=== PATIENT | female | born 1985 | race Caucasian/White ===

== ENCOUNTER 2017-07-25 17:35 | Emergency (ER) | payer MEDICAID ==
[~2017-07-25] VITALS: Ht 154.9 cm; Wt 61.2 kg
[~2017-07-25 17:35] MED LIST: CIPR500T2 PO; GABA300C3 PO; MELO15TA2 PO; METH500T3 PO; NAPR550 PO; OXYC15TA PO; PHEN-426 PO; Z.0.BCPILL PO
--- NOTE | 2017-07-25 19:02 | PD ---
HPI Chief Complaint Vaginal bleeding after intercourse Date Seen: Jul 25, 2017 Time Seen: 18:28 Travel History International Travel<30 Days: No Contact w/Intl Traveler<30Days: No Known Affected Area: No History of Present Illness HPI Patient is 32-year-old white female at [address] Mendosa care and presents complaining of vaginal bleeding similar to her period After intercourse today. She is not had this problem before. And she had a recent ultrasound that showed everything was normal. She has only minimal cramping noted today. Has not taken anything for that at this time, heart tones are 140s. Weeks Gestation: 18 Para: 1 : 2 History Obstetric History Obstetric History 1 for breech Past Surgical History Narrative Surgical Social History Alcohol Use: No Tobacco Use: No Substance Abuse: No Allergies-Medications (Allergen,Severity, Reaction): Coded Allergies: cefaclor (Unverified Allergy, Intermediate, HIVES, 12/24/16) codeine (Unverified Adverse Reaction, Intermediate, N&V, 12/24/16) Home Meds Discontinued Reported Medications Oxycodone (Oxycodone) 15 Mg Tab, 15 MG PO BID 05/25/11 Gabapentin (Gabapentin) 300 Mg Cap, 300 MG PO BID 05/25/11 Meloxicam (Mobic) 15 Mg Tab, 15 MG PO DAILY 05/25/11 Miscellaneous ( Control Pills) Tab, 1 TAB PO DAILY 10/18/10 Discontinued Scripts Phenazopyridine Hcl (Pyridium) 100 Mg Tab, 100 MG PO TID, #20 Prov:LESLEY LAKE MD 05/25/11 Ciprofloxacin Hcl (Ciprofloxacin Hcl) 500 Mg Tab, 500 MG PO BID, #14 Prov:LESLEY LAKE MD 05/25/11 Methocarbamol (Methocarbamol) 500 Mg Tab, 500 MG PO QID, #28 Prov:Gaurav Callejas MD 10/18/10 Naproxen Sodium (Anaprox Ds) 550 Mg Tab, 550 MG PO BID, #20 Prov:Gaurav Callejas MD 10/18/10 Review of Systems General / Constitutional: No: Fever, Weight Gain, Chills, Other Eyes: No: Diploplia, Blurred Vision, Visual changes, Pain, Photophobia HENT: No: Headaches, Vertigo, Lightheadedness Cardiovascular: No: Irregular Rhythm, Chest Pain or Discomfort, Palpitations, Tachycardia, Syncope, Varicosities, Edema, Cyanosis Respiratory: No: Cough, Short of Breath, Other Gastrointestinal: No: Nausea, Vomiting, Diarrhea Genitourinary: Vaginal Bleeding, No: Decreased Urinary Output, Oliguria Musculoskeletal: No: Limited ROM, Weakness, Cramping, Edema, Pain Skin: No Rash, No Itching, No Dryness, No Lumps, No Change in Pigmentation, No Change in Nails, No Alopecia, No Lesions Neurologic: No: Weakness, Dizziness, Syncope, Focal Abnormalities, Coordination Problem, Headache, Slurred Speech, Seizures Psychiatric: No: Depression, Suicidal Ideations, Homicidal Ideation Endocrine: No: Heat Intolerance, Cold Intolerance, Polydipsia, Polyuria, Other Physical Exam Narrative GENERAL: Well-nourished, well-developed patient. SKIN: Warm and dry. HEAD: Normocephalic and atraumatic. EYES: No scleral icterus. No injection or drainage. ENT: No nasal drainage noted. Mucous membranes pink. Airway patent. NECK: Supple, trachea midline. No JVD. CARDIOVASCULAR: Regular rate and rhythm without murmurs, gallops, or rubs. RESPIRATORY: Breath sounds equal bilaterally. No accessory muscle use. BREASTS: Bilateral exam showed no masses , no retractions, no nipple discharge. ABDOMEN/GI: Abdomen soft, non-tender, bowel sounds present, no rebound, no guarding Gravid to [18-] weeks size Fundal Height: [below umb-] GENITOURINARY: External Genitalia: intact and normal in appearance Speculum exam done-no active bleeding noted however the source of bleeding could be seen and that is a very friable cervix, she has a lot of endocervical columnar epithelial tissue that has been exteriorized out onto the ectocervix and right at the squamocolumnar junction its bleeding somewhat as a result of just being examined having the speculum placed in and manipulating the cervix has start up some slight amount of bleeding Cervix: [Closed-] Dilatation: [-Closed] Effacement: [-Thick] Station: [-3] Membranes: [intact ] Uterine Contractions: [none-] FHT's: 140s EXTREMITIES: No cyanosis or edema. BACK: Nontender without obvious deformity. No CVA tenderness. NEUROLOGICAL: Awake and alert. Motor and sensory grossly within normal limits. Five out of 5 muscle strength in all muscle groups. Normal speech. MDM Interpretation(s) Patient is 32-year-old white female at 18 weeks who presents with postcoital bleeding today. This bleeding as a result of a friable cervix with a large amount of endocervical columnar epithelium that is very friable being pushed out onto the ectocervix and is visible in a fairly large squamocolumnar area and this area just bleeds from just moving the speculum around and looking at was bleeding somewhat from that but there was no active bleeding or heavy bleeding. Plan I explained the source of bleeding to the patient she understands that she is to be at bedrest of the bleeding is stopped and then after that limit activity. She may need to discuss with Dr. Mendosa the possible alternatives to either position changes with intercourse to try to minimize trauma to the cervix, or just eliminate intercourse at this time until she is further along her until after Diagnosis Diagnosis: Primary Impression: Postcoital and contact bleeding Additional Impression: 18 weeks gestation of Disposition: 01 DISCHARGE HOME Condition: Stable Patient Instructions: General Instructions Departure Forms: Tests/Procedures Mono Chairez II, MD Jul 25, 2017 19:02
== END 2017-07-25 19:11 | disposition home or self-care (01) ==
LOC: HOBED 17:35
DX: O46.8X2 Other antepartum hemorrhage, second trimester (principal); N93.0 Postcoital and contact bleeding; Z3A.18 18 weeks gestation of pregnancy
CPT/HCPCS: 99284

== ENCOUNTER 2017-09-12 21:15 | Emergency (ER) | payer MEDICAID ==
[~2017-09-12] VITALS: Ht 154.9 cm; Wt 67.0 kg
[2017-09-12 21:24] VITALS: BP 113/77; PULSE 68; RESP 16; TEMP 98; O2SAT 100
[2017-09-12] MEDS ORDERED: SUDO4TAB PO (21:33)
[2017-09-12] MEDS ORDERED: METR250 PO (21:42)
--- NOTE | 2017-09-12 21:44 | PD ---
HPI Chief Complaint: Oral / Dental Pain or Problem Time Seen by Provider: 21:31 Travel History International Travel<30 days: No Contact w/Intl Traveler<30days: No Traveled to known affect area: No History of Present Illness HPI This is a 32-year-old female who presents to the emergency department with dental pain involving right jaw and right face, constant, moderate severity with no associated swelling or difficulty swallowing. She denies any fevers or chills. She took ibuprofen and tried Orajel but that did not help. She is 26 weeks . PFSH Past Medical History Medical History: Denies Significant Hx Diminished Hearing: No Musculoskeletal: Yes (CHRONIC BACK AND NECK PAIN) Immunizations Current: No Tetanus Vaccination: < 5 Years Influenza Vaccination: No ?: : 2 Para: 1 Past Surgical History Section: Yes Social History Alcohol Use: No Tobacco Use: No Substance Use: No Allergies-Medications (Allergen,Severity, Reaction): Coded Allergies: cefaclor (Unverified Allergy, Intermediate, HIVES, 12/24/16) codeine (Unverified Adverse Reaction, Intermediate, N&V, 12/24/16) Reported Meds & Prescriptions Reported Meds & Active Scripts Active Reported Sudogest Sinus & Allergy (Chlorpheniramine-Pseudoephedrine) 4-60 Mg Tab 1 Tab PO Q4H PRN Review of Systems General / Constitutional: No: Fever, Chills Respiratory: No: Shortness of Breath Gastrointestinal: No: Nausea Physical Exam Narrative GENERAL: Well-appearing, no acute distress, nontoxic SKIN: Warm and dry. HEAD: Atraumatic. Normocephalic. ENT: No nasal bleeding or discharge. Moist mucous membranes. Slightly impacted right mandibular wisdom tooth with a dental carry MUSCULOSKELETAL: No obvious deformities. NEUROLOGICAL: Awake and alert. No obvious cranial nerve deficits. Motor grossly within normal limits. Normal speech. PSYCHIATRIC: Appropriate mood and affect; insight and judgment normal. Data Data Last Documented VS Vital Signs Date Time Temp Pulse Resp B/P (MAP) Pulse Ox O2 Delivery O2 Flow Rate FiO2 09/12/17 21:24 98.0 68 16 113/77 (89) 100 MDM Medical Decision Making Medical Screen Exam Complete: Yes Emergency Medical Condition: Yes Differential Diagnosis dental abscess, pulpitis, mario's angina Narrative Course This is a 32-year-old female who presents to the emergency department with pain along her right face. She does have a dental carry on a right mandibular wisdom tooth and I suspect she has an early dental abscess. She is otherwise well-appearing with no fever or facial swelling. I think she can be discharged on oral antibiotic therapy. Diagnosis Primary Impression: Pain, dental Patient Instructions: General Instructions Additional Instructions: IF you develop swelling of your face, fever or difficulty swallowing or eating return to the emergency department. Follow up with a dentist if your symptoms are not improved. Med/Other Pt SpecificInfo: Prescription(s) given Scripts Metronidazole (Flagyl) 250 Mg Tab 250 MG PO TID for Infection for 7 Days, TAB 0 Refills Prov: Lisa Rossi MD 09/12/17 Disposition: 01 DISCHARGE HOME Condition: Stable Lisa Rossi MD September 12, 2017 21:44
== END 2017-09-12 21:57 | disposition home or self-care (01) ==
LOC: NEPD 21:15
DX: O26.892 Other specified pregnancy related conditions, second trimester (principal); K08.89 Other specified disorders of teeth and supporting structures; K01.1 Impacted teeth; K02.9 Dental caries, unspecified; Z3A.26 26 weeks gestation of pregnancy; Z88.1 Allergy status to other antibiotic agents; Z88.5 Allergy status to narcotic agent
CPT/HCPCS: 99283

== ENCOUNTER 2017-12-16 09:25 | Inpatient (IN) ==
[2017-12-16] MEDS ORDERED: ENTER PATIENT'S HEIGHT AND WEIGHT INTO MEDITECH - CALL PHARMACY OTHER SCH (10:00)
[2017-12-16] MEDS ORDERED: Citric Acid/Sodium Citrate Liq 30 ML UDC PO SCH (10:30)
[2017-12-16] MEDS ORDERED: Morphine Sulfate PF Inj 5 MG/10 ML Ampul ONE (10:31)
[2017-12-16 10:46] LABS: Baso # (Auto) 0.1 th/mm3 (0.0-0.2); Baso % (Auto) 0.8 % (0.0-2.0); Eos # (Auto) 0.1 th/mm3 (0.0-0.4); Eos % (Auto) 0.9 % (0.0-4.0); Hematocrit 37.1 % (35.0-46.0); Hemoglobin 12.8 gm/dL (11.6-15.3); Lymph # (Auto) 2.2 th/mm3 (1.0-4.8); Lymph % (Auto) 21.6 % (9.0-44.0); Mean Corpuscular HGB Conc 34.4 % (32.0-36.0); Mean Corpuscular Hemoglobin 31.6 pg (27.0-34.0); Mean Platelet Volume 8.6 fL (7.0-11.0); Mono # (Auto) 0.5 th/mm3 (0.0-0.9); Mono % (Auto) 5.1 % (0.0-8.0); Neut # (Auto) 7.4 th/mm3 (1.8-7.7); Neut % (Auto) 71.6 % (16.0-70.0); Platelet Count 243 th/mm3 (150-450); Red Blood Count 4.04 mil/mm3 (4.00-5.30); White Blood Count 10.3 th/mm3 (4.0-11.0)
[2017-12-16] MEDS ORDERED: ceFAZolin Inj 2,000 MG in Sodium Chlor 0.9% Inj 100 ML IV.SIG SCH (11:00)
--- NOTE | 2017-12-16 11:50 | P.HPOB ---
History of Present Illness Primary Care Physician: No Primary Care Physician Dr. Mendosa, TOBACCO DIPPER History of Present Illness: at 39 weeks 2 days, history of previous 1, presents for scheduled repeat . Patient denies any regular contractions, leakage of fluid, vaginal bleeding. She has been feeling the baby move. No chest pain/ shortness of breath/dizziness. OB history current ; uncomplicated, none -Most recent ultrasound at 36 weeks; vertex presentation, 5 lbs. 10 oz. -GBS negative OB history: - for breech presentation, laboring at 3 cm: 2014 - Inpatient Certification I certify that the inpatient services were ordered in accordance with Medicare regulations governing the order. This includes certification that hospital inpatient services are reasonable and necessary and in the case of services not specified as inpatient-only under 42 CFR 419.22(n), that they are appropriately provided as inpatient services in accordance to with the 2-midnight benchmark under 43 CFR 412.3(e) Estimated Total Length of Stay (Days): 3 Plans for Post Hospital Care: Home Review of Systems All other systems reviewed negative except as stated in HPI PMFSH - History History Provided By: Patient - Medical / Surgical Hx Neg / Unobtainable Medical Problems Denied: Yes - Medical History Medical History: Medical History (Last Updated 12/17/17 @ 07:11 by Liz Tavera MD, R2) Asthma - Surgical History Surgical History: Surgical History (Last Reviewed 12/17/17 @ 07:11 by Liz Tavera MD, R2) History of - Tobacco History Second Hand Smoke Exposure: No Tobacco Use In Past 30 Days: No Smoking Status: Former smoker - Alcohol History How Often Do You Have a Drink Containing Alcohol: Never - Substance Use History Substance History: No History of Abuse - Travel History Recent Travel in the [place] Within the Last 8 Weeks: No Recent Travel Out of the Country Within the Last 8 Weeks: No Medications and Allergies Active Medications: Active Medications Citric Acid/Sodium Citrate (Sodium Citrate/Citric Acid Liq) 30 ml PO DOUBLE CUT OFF SAW OPERATOR [facility] Stop: 12/20/17 10:29 Lactated Ringer's (Lr 1000 Ml Inj) 1,000 mls @ 150 mls/hr IV.CONT .Q6H40M [facility] Last Admin: 12/16/17 11:31 Dose: 150 mls/hr Cefazolin Sodium 2,000 mg/ (Sodium Chloride) 100 mls @ 200 mls/hr IV.SIG DOUBLE CUT OFF SAW OPERATOR DEBRA Allergies Allergy/AdvReac Type Severity Reaction Status Date / Time cefaclor Allergy Intermediate HIVES Verified 12/12/17 16:14 codeine AdvReac Intermediate N&V Verified 12/12/17 16:14 Home Medications Medication Instructions Recorded Confirmed Type [id number] 1 tab PO DAILY 11/18/17 12/16/17 History [ Multi] calcium carbonate [Calcium 500] 500 mg PO BID 12/16/17 12/16/17 History Exam Vital signs: Vital Signs 12/16/17 09:52 12/16/17 09:53 Temperature 97.7 F Pulse Rate 73 Respiratory Rate 18 Blood Pressure 107/67 Intake & Output 12/15/17 12/16/17 12/16/17 18:59 06:59 18:59 Weight 77.111 kg Other: Weight On Admission 77.111 kg Narrative: FH: 38cm - Constitutional no acute distress - Routine HEENT Exam Head: Present: normocephalic - Routine Respiratory Exam Present: CTA bilaterally. Absent: accessory muscle use, decreased breath sounds , respiratory distress - Routine Cardiovascular Exam Present: RRR, S1, S2 Results - Labs CBC & Chem 7: 12/17/17 05:00 Labs: Laboratory Results - last 24 hr 12/16/17 12/16/17 09:45 09:45 WBC 10.3 RBC 4.04 Hgb 12.8 Hct 37.1 MCV 92.0 MCH 31.6 MCHC 34.4 RDW 14.0 Plt Count 243 MPV 8.6 Neut % (Auto) 71.6 H Lymph % (Auto) 21.6 Eaton % (Auto) 5.1 Eos % (Auto) 0.9 Baso % (Auto) 0.8 Neut # (Auto) 7.4 Lymph # (Auto) 2.2 Eaton # (Auto) 0.5 Eos # (Auto) 0.1 Baso # (Auto) 0.1 WBC Differential . Differential Comment Auto diff final Blood Type O Negative Blood Type Recheck Required Group B Strep: Negative Caprini VTE Risk Assessment Caprini VTE Risk Assessment: No/Low Risk (score <= 1) Caprini Risk Assessment Model: Point Value = 1 Point Value = 2 Point Value = 3 Point Value = 5 Age 41-60 Minor surgery BMI > 25 kg/m2 Swollen legs Varicose veins or History of unexplained or recurrent spontaneous Oral contraceptives or hormone replacement Sepsis (< 1 month) Serious lung disease, including pneumonia (< 1 month) Abnormal pulmonary function Acute myocardial infarction Congestive heart failure (< 1 month) History of inflammatory bowel disease Medical patient at bed rest Age 61-74 Arthroscopic surgery Major open surgery (> 45 min) Laparoscopic surgery (> 45 min) Malignancy Confined to bed (> 72 hours) Immobilizing plaster cast Central venous access Age >= 75 History of VTE Family history of VTE Factor V Leiden Prothrombin [id number] Lupus anticoagulant Anticardiolipin antibodies Elevated serum homocysteine Heparin-induced thrombocytopenia Other congenital or acquired thrombophilia Stroke (< 1 month) Elective arthroplasty Hip, pelvis, or leg fracture Acute spinal cord injury (< 1 month) Prophylaxis Regimen: Total Risk Factor Score Risk Level Prophylaxis Regimen 0-1 Low Early ambulation 2 Moderate Order ONE of the following: *Sequential Compression Device (SCD) *Heparin 5000 units SQ BID 3-4 Higher Order ONE of the following medications: *Heparin 5000 units SQ TID *Enoxaparin/Lovenox 40 mg SQ daily (WT < 150 kg, CrCl > 30 mL/min) *Enoxaparin/Lovenox 30 mg SQ daily (WT < 150 kg, CrCl > 10-29 mL/min) *Enoxaparin/Lovenox 30 mg SQ BID (WT < 150 kg, CrCl > 30 mL/min) AND/OR *Sequential Compression Device (SCD) 5 or more Highest Order ONE of the following medications: *Heparin 5000 units SQ TID (Preferred with Epidurals) *Enoxaparin/Lovenox 40 mg SQ daily (WT < 150 kg, CrCl > 30 mL/min) *Enoxaparin/Lovenox 30 mg SQ daily (WT < 150 kg, CrCl > 10-29 mL/min) *Enoxaparin/Lovenox 30 mg SQ BID (WT < 150 kg, CrCl > 30 mL/min) AND *Sequential Compression Device (SCD) Assessment and Plan - Diagnosis (1) Code(s): Z34.90 - Encounter for supervision of normal , unspecified, unspecified trimester Status: Acute Plan: at 39 weeks 2 days, history of previous 1, presents for scheduled repeat . -N.p.o. since midnight -Category 1 tracing, FHR baseline 135, positive accelerations, no decelerations -MD aware, proceed with scheduled
[2017-12-16] MEDS ORDERED: Succinylcholine Inj 100 MG/5 ML Syringe IV.PUSH ONE (12:00)
[2017-12-16] MEDS ORDERED: Phenylephrine/NS 1000 MCG/10ML Syringe IV.PUSH ONE (12:00)
[2017-12-16] MEDS ORDERED: fentaNYL Citrate Inj 100 MCG/2 ML Ampul ONE (12:35)
[2017-12-16] MEDS ORDERED: fentaNYL Citrate Inj 250 MCG/5 ML Ampul ONE (13:03)
[2017-12-16] MEDS ORDERED: Ketorolac Inj 30 MG/ML (IVP) Vial ONE (13:51)
[2017-12-16 14:15] LABS: Amphetamine Screen,Urine Neg (Neg); Barbiturate Screen,Urine Neg (Neg); Cannabinoid Screen,Urine Neg (Neg); Cocaine Screen,Urine Neg (Neg)
[2017-12-16 14:22] LABS: Bilirubin,Urine Negative (Negative); Clarity,Urine Clear (Clear); Color,Urine Yellow (Yellw/Straw); Glucose,Urine (UA) Negative (Negative); Leukocyte Esterase,Urine Negative (Negative); Mucus,Urine Few /lpf (Occasional); Nitrite,Urine Negative (Negative); Specific Gravity,Urine 1.016 (1.002-1.035); Squamous Epithelial Cell,Urine 2 /hpf (0-5)
[2017-12-16 14:24] LABS: Opiate Screen,Urine Neg (Neg)
--- NOTE | 2017-12-16 15:06 | MP ---
cc: Simone Srinivasan DO DATE OF OPERATION: INDICATIONS FOR PROCEDURE: This is a 32-year-old female who is undergoing by Dr. Mendosa and a bladder injury occurred. Urology was then consulted. The patient was on the operating table in the supine position and had received preprocedure antibiotics and was under MAC anesthesia. PREOPERATIVE DIAGNOSIS: . POSTOPERATIVE DIAGNOSIS:. . PROCEDURE PERFORMED: Repair of bladder injury. SURGEON: Simone Srinivasan DO CARPET LAYER HELPER: Dr. Mendosa. BLOOD LOSS: 50 mL FINDINGS: Bladder injury. DRAINS: A 16-[place] Gee catheter. CONDITION: She tolerated the procedure well and was transferred to recovery room in stable condition. PROCEDURE: The patient was in the supine position on the operating table when I entered the room and attempt was made by Dr. Mendosa to repair the bladder; however, this was unsuccessful. The bladder was very thin posteriorly and the initial repair was taken down using the Metzenbaum scissors. Once that was done, then 2-0 Chromic suture was then used in a running locking fashion to close the initial layer and then following that imbricating stitch was then used as a 2-0 Chromic to close the secondary closure. Some leaking at the site was again noted and further suturing continued with the 2-0 Chromic suture. The bladder was then repaired and then the bladder was filled and at the completion of the procedure, there was no evidence of any leaking. The skin incision was then closed by Dr. Mendosa. The plan will be to leave the Gee in for 10-14 days. Then, prior to removal of the Gee, we will recommend a cystogram to test the integrity of the repair. The patient tolerated the procedure well. Simone Srinivasan DO SWT/TL , 02:42 PM , 02:50 PM
[2017-12-16] MEDS ORDERED: Zolpidem Tartrate 5 MG Tablet PO PRN (15:21)
[2017-12-16] MEDS ORDERED: Oxytocin 30 Units/500ml Premix 30 UNITS/500 ML BAG ONE (15:24)
[2017-12-16] MEDS ORDERED: HYDROmorphone PF Inj 2 MG/ML Vial ONE (15:39)
[2017-12-16] MEDS ORDERED: Oxytocin 30 Units/500ml Premix 30 UNITS/500 ML BAG IV.SIG ONE (16:00)
[2017-12-16] MEDS ORDERED: Naloxone Inj 0.4 MG/ML Vial IV.PUSH PRN (16:52)
[2017-12-16] MEDS ORDERED: HYDROmorphone PF Inj 2 MG/ML Vial IV.PUSH ONE (17:00)
[2017-12-16] MEDS ORDERED: Oxytocin 30 Units/500ml Premix 30 UNITS/500 ML BAG IV.SIG PRN (20:22)
[2017-12-17] MEDS: Ibuprofen 600 MG Tablet PO PRN ×2 (02:38→11:07)
[2017-12-17] MEDS: Simethicone 80 MG Chew Tablet PO PRN ×3 (02:40→22:36)
[2017-12-17 05:54] LABS: Baso % (Auto) 0.2 % (0.0-2.0); Eos % (Auto) 0.2 % (0.0-4.0); Hematocrit 29.9 % (35.0-46.0); Hemoglobin 10.5 gm/dL (11.6-15.3); Lymph # (Auto) 1.9 th/mm3 (1.0-4.8); Lymph % (Auto) 12.7 % (9.0-44.0); Mean Corpuscular Hemoglobin 32.4 pg (27.0-34.0); Mean Corpuscular Volume 92.4 fL (80.0-100.0); Mean Platelet Volume 8.6 fL (7.0-11.0); Mono # (Auto) 0.6 th/mm3 (0.0-0.9); Mono % (Auto) 4.1 % (0.0-8.0); Neut # (Auto) 12.3 th/mm3 (1.8-7.7); Neut % (Auto) 82.8 % (16.0-70.0); Platelet Count 209 th/mm3 (150-450); Red Blood Count 3.24 mil/mm3 (4.00-5.30); Red Cell Distribution Width 13.5 % (11.6-17.2); White Blood Count 14.9 th/mm3 (4.0-11.0)
--- NOTE | 2017-12-17 07:06 | MP ---
cc: Augusto Mendosa MD DATE OF OPERATION: 12/16/2017 PREOPERATIVE DIAGNOSES: 1. Intrauterine at 39 weeks. 2. Previous section, desires repeat. 3. Desires permanent sterilization. POSTOPERATIVE DIAGNOSES: 1. Intrauterine at 39 weeks. 2. Previous section, desires repeat. 3. Desires permanent sterilization. 4. Cystotomy. PROCEDURE PERFORMED: Repeat low transverse section, excision of the old scar, bilateral tubal ligation and cystotomy. ANESTHESIA: Spinal followed by general endotracheal intubation. SURGEON: Augusto Mendosa MD for the and the tubal ligation and for rn first assistant for Dr. Simone Srinivasan for the repair of the cystotomy. FINDINGS: Normal male infant, Apgars 9 and 9, weight 6 pounds 11 ounces. Normal tubes, normal ovaries, normal uterus. The bladder was firmly adherent to the lower uterine segment, making the dissection difficult. COMPLICATIONS: Cystotomy. COUNTS: Were correct. ESTIMATED BLOOD LOSS: 700 mL FLUIDS: Crystalloids. DISPOSITION: The patient tolerated the procedure well and went to the recovery room in satisfactory condition. INDICATIONS FOR PROCEDURE: This is a young lady who came back for a repeat section and a tubal ligation since she desired a sterilization. DESCRIPTION OF PROCEDURE: She was taken to the operating room, identified by name band and verbally, given a spinal anesthetic, prepped and draped in the usual sterile fashion for a repeat section. Timeout was taken and the old incision was excised with a #10 blade and the incision was taken down to the fascia. The fascia was nicked bilaterally and taken off the rectus muscles by sharp and blunt dissection. The peritoneum was then entered under direct vision without difficulty and the incision was extended with care to avoid the urinary bladder. The bladder blade was placed and a bladder flap was created. There was a bit of adhesions in this area. It was difficult to hold the bladder down. At this point, the lower uterine segment was incised sharply and extended with the surgeon's fingers. Once the uterine cavity had been entered, the vertex was grasped and with gentle fundal pressure delivered easily. The hypopharynx and nasopharynx were suctioned. The cord was clamped and cut after 45 seconds and the infant was handed off to the resuscitation team present. The uterus was delivered from the abdomen and the placenta was delivered manually. The uterus was then curettaged twice with a wet lap. The uterine incision was then repaired with 0 Vicryl in a running locking fashion. On the right side of the incision, however, there seemed to be some very dense adhesions. The lower uterine segment was extremely thin and the bladder was very adherent to this area. In attempting to take it down, a 3-4 cm cystotomy incision was made. We took the bladder down, at this point, and repaired the uterine incision with a second layer of 0 Vicryl in a running fashion with excellent results. Hemostasis was excellent. I then repaired the cystotomy with 3-0 chromic on an SH needle. The posterior wall, however, was very thin. It looks like only mucosa. The muscularis was not there. It became evident that this was not normal and I called in Dr. Simone Srinivasan, who will dictate his portion of the note. Once Dr. Srinivasan had fixed the cystotomy incision, there was some little bit of bleeding in that area and some Trish was placed in that area between the bladder and the lower uterine segment. This created excellent hemostasis. At this point, the uterus was delivered back into the abdomen. The gutters were cleaned of blood and debris. The rectus muscles were then reapproximated with 0 Vicryl in a running fashion. The fascia was repaired with 0 Vicryl from lateral to midline bilaterally without difficulty. The subcutaneous was then repaired with a 2-0 Vicryl in the mid portion and then a 3-0 Vicryl for the entire length of the incision. The skin was reapproximated with a 4-0 Monocryl in a subcuticular fashion. She tolerated the procedure very well, although she did have to undergo general anesthesia at the end. Afterwards, I went and explained to the what had occurred and surgery in great detail and then later that night, I did go speak to the patient in length about the complication, the expected outcome, and the need to wear a Gee catheter for 10 days. R. MD BRUCE Daniels/SUNIL , 12:05 AM , 12:16 AM
--- NOTE | 2017-12-17 07:15 | P.PNOB ---
Subjective Post op day: 1 Interval history: Patient seen and examined bedside this morning. Patient has had urethral discomfort overnight; she states that she does not have pain with the Gee but she can feel that the Gee is there and it feels uncomfortable. She is having mild abdominal pain, but nothing severely painful. She has not requested Percocet yet. She has been taking Motrin for pain. She has been eating and drinking without difficulty. No recent nausea or vomiting. She has been walking around the room with no difficulties. Gee is still in place. No chest pain/shortness of breath/dizziness. Objective Vital Signs/I&O: Vital Signs 12/16/17 09:52 12/16/17 09:53 12/16/17 15:15 Temperature 97.7 F Pulse Rate 73 103 H Respiratory Rate 18 20 Blood Pressure 107/67 118/68 12/16/17 15:30 12/16/17 15:45 12/16/17 16:00 Temperature Pulse Rate 79 81 78 Respiratory Rate 19 18 17 Blood Pressure 107/62 120/62 113/68 12/16/17 16:15 12/16/17 17:35 12/16/17 22:00 Temperature 97.9 F Pulse Rate 80 85 69 Respiratory Rate 18 18 16 Blood Pressure 111/56 L 107/64 105/61 12/17/17 00:30 12/17/17 04:30 12/17/17 05:00 Temperature 98.1 F 97.3 F L Pulse Rate 73 74 Respiratory Rate 16 16 Blood Pressure 102/58 L 101/59 L Intake & Output 12/16/17 12/17/17 12/17/17 18:59 06:59 18:59 Intake Total 200 / 200 Output Total 60 / 60 2275 / 2275 Balance -60 / -60 -2074 / -207 Weight 77.111 kg Intake: IV 200 / 200 Ofirmev Inj 1,000 mg In 100 ml 100 / 100 @ 400 mls/hr IV.SIG Q8H [facility] Rx# :[id number] Ancef Inj 1,000 MG In NS Inj 100 / 100 100 ML @ 200 mls/hr IV.SIG Q8H [facility] Rx#:[id number] Output: Urine 60 / 60 1375 / 1375 Urine Amount (Catheter) 900 / 900 Indwelling Urethral Catheter 900 / 900 Other: Weight On Admission 77.111 kg Result Diagrams: 12/17/17 05:00 Objective Remarks: GENERAL: Well-nourished, well-developed patient. CARDIOVASCULAR: Regular rate and rhythm without murmurs, gallops, or rubs. RESPIRATORY: Breath sounds equal bilaterally. No accessory muscle use. ABDOMEN/GI: Abdomen soft, tender on deep uterine palpation, bowel sounds present. Incision: pressure dressing in place, no drainage from dressing Fundus: Firm, tender to palpation at umbilicus. GENITOURINARY: Light to moderate bleeding. EXTREMITIES: No cyanosis or edema, non-tender, without signs of DVT. Medications and IVs: Active Medications Citric Acid/Sodium Citrate (Sodium Citrate/Citric Acid Liq) 30 ml PO VENEER STOCK GRADER [facility] Stop: 12/20/17 10:29 Diphenhydramine HCl (Benadryl Inj) 25 mg IV.PUSH Q6H PRN PRN Reason: MILD TO MODERATE ITCHING Stop: 12/17/17 17:00 Diphenhydramine HCl (Benadryl) 50 mg PO Q6H PRN PRN Reason: MILD TO MODERATE ITCHING Stop: 12/17/17 17:00 Diphtheria/Pertussis/Tetanus Vacc (Boostrix Vaccine Inj) 0.5 ml IM .ONCE ONE Stop: 12/17/17 16:01 Cefazolin Sodium 2,000 mg/ (Sodium Chloride) 100 mls @ 200 mls/hr IV.SIG VENEER STOCK GRADER [facility] Lactated Ringer's (Lr 1000 Ml Inj) 1,000 mls @ 100 mls/hr IV.CONT .Q10H [facility] Stop: 12/17/17 16:21 Last Admin: 12/17/17 04:48 Dose: 100 mls/hr Oxytocin (Pitocin 30 Units/Ns 500 Ml Premix) 30 units in 500 mls @ 100 mls/hr IV.SIG PRN PRN PRN Reason: Heavy bleeding Stop: 12/17/17 20:21 Acetaminophen (Ofirmev Inj) 1,000 mg in 100 mls @ 400 mls/hr IV.SIG Q8H [facility] Stop: 12/17/17 12:14 Last Admin: 12/17/17 04:43 Dose: 400 mls/hr Ibuprofen (Motrin) 600 mg PO Q6H PRN PRN Reason: cramping Last Admin: 12/17/17 02:38 Dose: 600 mg Measles/Mumps/Rubella Vaccine Live (M-M-R Ii Vaccine Inj) 0.5 ml SQ .ONCE ONE Stop: 12/17/17 16:01 Miscellaneous Information ([facility] [place] Nursing Information) 1 each OTHER UNSCH PRN PRN Reason: SEE LABEL COMMENTS Stop: 12/17/17 17:00 Miscellaneous Information ([facility] [place] Nursing Information) 1 each OTHER UNSCH PRN PRN Reason: SEE LABEL COMMENTS Stop: 12/17/17 17:00 Naloxone HCl (Narcan Inj) 0.4 mg IV.PUSH UNSCH PRN PRN Reason: SEE LABEL COMMENTS Stop: 12/17/17 17:00 Ondansetron HCl (Zofran Inj) 4 mg IV.PUSH Q6H PRN PRN Reason: NAUSEA OR VOMITING Oxycodone/Acetaminophen (Percocet 5/325 Mg) 1 tab PO Q4H PRN PRN Reason: PAIN SCALE 3 TO 5 Oxycodone/Acetaminophen (Percocet 5/325 Mg) 2 tab PO Q4H PRN PRN Reason: PAIN SCALE 6 TO 10 Vit/Calcium/Iron/Folic Ac (Stuartnatal Plus 3) 1 tab PO DAILY [facility] Senna/Docusate Sodium (Dorita-Colace) 2 tab PO Q12H PRN PRN Reason: CONSTIPATION Simethicone (Mylicon Chew) 80 mg PO QID PRN PRN Reason: FLATULENCE Last Admin: 12/17/17 02:40 Dose: 80 mg Sodium Chloride (Ns Flush) 2 ml IV.FLUSH BID DEBRA Sodium Chloride (Ns Flush) 2 ml IV.FLUSH UNSCH PRN PRN Reason: FLUSH AFTER USING IV ACCESS Zolpidem Tartrate (Ambien) 5 mg PO HS PRN PRN Reason: INSOMNIA Assessment and Plan - Diagnosis (1) delivery delivered Code(s): O82 - Encounter for delivery without indication Status: Acute Plan: s/p scheduled repeat c/s, POD#1 Continue regular diet as tolerated Continue to encourage ambulation Maintain Gee 14 days as below Continue regular postop care Baseline hemoglobin 12.8, hemoglobin 10.5 this morning,stable, f/u CBC in office as outpatient (2) Bladder injury Code(s): S37.20XA - Unspecified injury of bladder, initial encounter Status: Acute Plan: Patient feeling discomfort with Gee, likely bladder spasms. Gee with clear urine Follow-up BMP, will possibly give med for bladder spasm f/u cystogram in 14 days and Gee removal in 14 days Follow-up in office with Dr. Srinivasan urologist next week - Plan Discharge Planning: will likely d/c on POD#3, with f/u next week in office with urologist , and f/u at 1week ppm with TRAIN OPERATOR
--- NOTE | 2017-12-17 09:17 | P.PNURO ---
Subjective Patient symptoms today: Pt seen and examined. Feels well but some bladder spasms. Hair with clear urine. Objective Vital Signs: Vital Signs 12/16/17 09:52 12/16/17 09:53 12/16/17 15:15 Temperature 97.7 F Pulse Rate 73 103 H Respiratory Rate 18 20 Blood Pressure 107/67 118/68 12/16/17 15:30 12/16/17 15:45 12/16/17 16:00 Temperature Pulse Rate 79 81 78 Respiratory Rate 19 18 17 Blood Pressure 107/62 120/62 113/68 12/16/17 16:15 12/16/17 17:35 12/16/17 22:00 Temperature 97.9 F Pulse Rate 80 85 69 Respiratory Rate 18 18 16 Blood Pressure 111/56 L 107/64 105/61 12/17/17 00:30 12/17/17 04:30 12/17/17 05:00 Temperature 98.1 F 97.3 F L Pulse Rate 73 74 Respiratory Rate 16 16 Blood Pressure 102/58 L 101/59 L Intake & Output 12/16/17 12/17/17 12/17/17 18:59 06:59 18:59 Intake Total 300 / 300 Output Total 60 / 60 2275 / 2275 250 / 250 Balance -60 / -60 -1974 / -1974 -250 / -250 Weight 77.111 kg Intake: IV 300 / 300 Ofirmev Inj 1,000 mg In 100 ml 200 / 200 @ 400 mls/hr IV.SIG Q8H [facility] Rx# :[id number] Ancef Inj 1,000 MG In NS Inj 100 / 100 100 ML @ 200 mls/hr IV.SIG Q8H [facility] Rx#:[id number] Output: Urine 60 / 60 1375 / 1375 Urine Amount (Catheter) 900 / 900 250 / 250 Indwelling Urethral Catheter 900 / 900 250 / 250 Other: Weight On Admission 77.111 kg Result Diagrams: 12/17/17 05:00 Medications and IVs: Active Medications Generic Name Dose Route Start Last Admin Trade Name Freq PRN Reason Stop Dose Admin Citric Acid/Sodium Citrate 30 ml 12/16/17 10:30 Sodium Citrate/Citric Acid Liq PO 12/20/17 10:29 BEDSPREAD INSPECTOR [facility] Diphenhydramine HCl 25 mg 12/16/17 16:52 Benadryl Inj IV.PUSH 12/17/17 17:00 Q6H PRN MILD TO MODERATE ITCHING Diphenhydramine HCl 50 mg 12/16/17 16:52 Benadryl PO 12/17/17 17:00 Q6H PRN MILD TO MODERATE ITCHING Diphtheria/Pertussis/Tetanus Vacc 0.5 ml 12/17/17 16:00 Boostrix Vaccine Inj IM 12/17/17 16:01 .ONCE ONE Cefazolin Sodium 2,000 mg/ 100 mls @ 200 mls/hr 12/16/17 11:00 Sodium Chloride IV.SIG BEDSPREAD INSPECTOR [facility] Lactated Ringer's 1,000 mls @ 100 mls/hr 12/16/17 20:22 12/17/17 04:48 Lr 1000 Ml Inj IV.CONT 12/17/17 16:21 100 mls/hr .Q10H [facility] Administration Oxytocin 30 units in 500 mls @ 100 mls/hr 12/16/17 20:22 Pitocin 30 Units/Ns 500 Ml Premix IV.SIG 12/17/17 20:21 PRN PRN Heavy bleeding Acetaminophen 1,000 mg in 100 mls @ 400 mls/hr 12/16/17 20:00 12/17/17 05:00 Ofirmev Inj IV.SIG 12/17/17 12:14 Infused Q8H [facility] Infusion Ibuprofen 600 mg 12/16/17 15:21 12/17/17 02:38 Motrin PO 600 mg Q6H PRN Administration cramping Measles/Mumps/Rubella Vaccine Live 0.5 ml 12/17/17 16:00 M-M-R Ii Vaccine Inj SQ 12/17/17 16:01 .ONCE ONE Miscellaneous Information 1 each 12/16/17 16:52 Misc Nursing Information OTHER 12/17/17 17:00 UNSCH PRN SEE LABEL COMMENTS Miscellaneous Information 1 each 12/16/17 16:52 Misc Nursing Information OTHER 12/17/17 17:00 UNSCH PRN SEE LABEL COMMENTS Naloxone HCl 0.4 mg 12/16/17 16:52 Narcan Inj IV.PUSH 12/17/17 17:00 UNSCH PRN SEE LABEL COMMENTS Ondansetron HCl 4 mg 12/16/17 15:21 Zofran Inj IV.PUSH Q6H PRN NAUSEA OR VOMITING Oxycodone/Acetaminophen 1 tab 12/16/17 15:21 Percocet 5/325 Mg PO Q4H PRN PAIN SCALE 3 TO 5 Oxycodone/Acetaminophen 2 tab 12/16/17 15:21 Percocet 5/325 Mg PO Q4H PRN PAIN SCALE 6 TO 10 Vit/Calcium/Iron/Folic Ac 1 tab 12/17/17 09:00 Stuartnatal Plus 3 PO DAILY [facility] Senna/Docusate Sodium 2 tab 12/16/17 15:21 Dorita-Colace PO Q12H PRN CONSTIPATION Simethicone 80 mg 12/16/17 15:21 12/17/17 02:40 Mylicon Chew PO 80 mg QID PRN Administration FLATULENCE Sodium Chloride 2 ml 12/16/17 21:00 Ns Flush IV.FLUSH BID [facility] Sodium Chloride 2 ml 12/16/17 15:21 Ns Flush IV.FLUSH UNSCH PRN FLUSH AFTER USING IV ACCESS Zolpidem Tartrate 5 mg 12/16/17 15:21 Ambien PO HS PRN INSOMNIA Objective Remarks: Abd:soft,nt,nd Hair with clear urine. Assessment and Plan - Plan Stable s/p with repair of bladder injury Hair with leg bag teaching. Cystogram in 14 days with hair removal at that time. F/U in office next week.
[2017-12-17 11:29] LABS: Calcium 7.9 mg/dL (8.5-10.1); Carbon Dioxide 20.9 meq/L (21.0-32.0); Potassium 3.7 meq/L (3.5-5.1)
[2017-12-17] MEDS ORDERED: Diphtheria/Tetanus/Pertussis Vaccine Inj 0.5 ML Syringe IM ONE (16:00)
[2017-12-17] MEDS ORDERED: Measles/Mumps/Rubella Vaccine Inj 0.5 ML Vial SQ ONE (16:00)
[2017-12-17] MEDS ORDERED: HYDROmorphone PF Inj 2 MG/ML Vial IV.PUSH ONE ×2 (17:30→19:26)
--- NOTE | 2017-12-17 19:25 | P.PNOB ---
Assessment and Plan - Postoperative Procedures Operation Date: 12/16/17 12:00 <No data on this case meets the specified criteria> - Time Spent With Patient Total time spent is greater than 50% in coordination of care (as documented) at patient's floor/unit and/or counseling patient: Subjective Subjective: pain not well controlled (Now in severe pain. My stomach really hurts. ) Physical Exam Vital signs: Temp Pulse Resp BP 97.5 F L 78 18 105/69 12/17/17 12:21 12/17/17 12:21 12/17/17 12:21 12/17/17 12:21 - Constitutional moderate distress - Routine Abdominal Exam Present: soft, tenderness, organomegaly (POD #1 Now in pain and probably having bladder spasm. will give her 2 mg of dilaudid now and start the B+O suppositories now. That is a class C drug but may really help. ) - Urinary Catheter Management Indwelling Urethral Catheter Cath placed during this visit: no Results - Labs CBC & Chem 7: 12/17/17 05:00 12/17/17 10:30 Labs: Laboratory Results - last 24 hr 12/17/17 12/17/17 05:00 10:30 WBC 14.9 H RBC 3.24 L Hgb 10.5 L D Hct 29.9 L MCV 92.4 MCH 32.4 MCHC 35.0 RDW 13.5 Plt Count 209 MPV 8.6 Neut % (Auto) 82.8 H Lymph % (Auto) 12.7 [place] % (Auto) 4.1 Eos % (Auto) 0.2 Baso % (Auto) 0.2 Neut # (Auto) 12.3 H Lymph # (Auto) 1.9 [place] # (Auto) 0.6 Eos # (Auto) 0.0 Baso # (Auto) 0.0 WBC Differential . Differential Comment Auto diff final Sodium 140 Potassium 3.7 Chloride 108 H Carbon Dioxide 20.9 L Anion Gap 11 BUN 9 Creatinine 0.93 Estimated GFR 70 L Random Glucose 126 H Calcium 7.9 L
[2017-12-17] MEDS: Belladonna Alkaloid/Opium 60 MG Supp RECTAL PRN (20:14)
[2017-12-17] MEDS ORDERED: Naloxone Inj 0.4 MG/ML Vial IV.PUSH PRN (20:41)
[2017-12-17] MEDS: HYDROmorphone PCA Inj 6 MG/30 ML PCA.VIAL PCA PRN (23:26)
[2017-12-18] MEDS: HYDROmorphone PCA Inj 6 MG/30 ML PCA.VIAL PCA PRN (09:24)
--- NOTE | 2017-12-18 09:26 | P.PNOB ---
Subjective Post op day: 2 Interval history: Pt had acute pain overnight and was placed on BOARDER MACHINE Overall doing well Not passing gas, no BM On clear liquid diet Objective Vital Signs/I&O: Vital Signs 12/17/17 12:21 12/17/17 20:10 12/18/17 01:00 Temperature 97.5 F L 98.6 F 98.4 F Pulse Rate 78 83 68 Respiratory Rate 18 16 16 Blood Pressure 105/69 133/78 117/69 12/18/17 05:00 Temperature 98.0 F Pulse Rate 73 Respiratory Rate 16 Blood Pressure 121/62 Intake & Output 12/17/17 12/18/17 12/18/17 18:59 06:59 18:59 Intake Total 1000 / 1000 Output Total 189 / 1895 740 / 740 60 / 60 Balance -895 / -895 -740 / -740 -60 / -60 Intake: IV 1000 / 1000 LR 1000 mL Inj 1,000 ML @ 100 1000 / 1000 mls/hr IV.CONT .Q10H [facility] Rx#: [id number] Output: Urine Amount (Catheter) 1894 / 1895 740 / 740 60 / 60 Indwelling Urethral Catheter 1894 / 1895 740 / 740 60 / 60 Result Diagrams: 12/17/17 05:00 12/17/17 10:30 Objective Remarks: GENERAL: Well-nourished, well-developed patient. CARDIOVASCULAR: Regular rate and rhythm without murmurs, gallops, or rubs. RESPIRATORY: Breath sounds equal bilaterally. No accessory muscle use. ABDOMEN/GI: Abdomen soft, non-tender, hypoactive bowel sounds Incision: Clean, dry and intact. Fundus: Firm, non-tender at umbilicus. GENITOURINARY: Light to moderate bleeding. EXTREMITIES: No cyanosis or edema, non-tender, without signs of DVT. Medications and IVs: Active Medications Belladonna Alkaloids/Opium (B & O Supp) 60 mg RECTAL Q6H PRN PRN Reason: BLADDER SPASM Last Admin: 12/17/17 20:14 Dose: 60 mg Citric Acid/Sodium Citrate (Sodium Citrate/Citric Acid Liq) 30 ml PO ACCOUNTING SUPERVISOR [facility] Stop: 12/20/17 10:29 Diphenhydramine HCl (Benadryl Inj) 25 mg IV.PUSH Q6H PRN PRN Reason: for itching Diphenhydramine HCl (Benadryl Inj) 25 mg IV.PUSH Q6H PRN PRN Reason: ITCHING Cefazolin Sodium 2,000 mg/ (Sodium Chloride) 100 mls @ 200 mls/hr IV.SIG ACCOUNTING SUPERVISOR [facility] Hydromorphone/Sodium Chloride (Dilaudid Welder Boilermaker Inj) 6 mg in 30 mls @ 0 mls/hr BOARDER MACHINE UNSCH PRN PRN Reason: per BOARDER MACHINE parameters Last Admin: 12/17/17 23:26 Dose: 0 mls/hr Ibuprofen (Motrin) 600 mg PO Q6H PRN PRN Reason: cramping Last Admin: 12/17/17 11:07 Dose: 600 mg Naloxone HCl (Narcan Inj) 0.4 mg IV.PUSH PRN PRN PRN Reason: SEE LABEL COMMENTS Ondansetron HCl (Zofran Inj) 4 mg IV.PUSH Q6H PRN PRN Reason: NAUSEA OR VOMITING Oxycodone/Acetaminophen (Percocet 5/325 Mg) 1 tab PO Q4H PRN PRN Reason: PAIN SCALE 3 TO 5 Oxycodone/Acetaminophen (Percocet 5/325 Mg) 2 tab PO Q4H PRN PRN Reason: PAIN SCALE 6 TO 10 Last Admin: 12/17/17 16:04 Dose: 2 tab Vit/Calcium/Iron/Folic Ac (Stuartnatal Plus 3) 1 tab PO DAILY DEBRA Senna/Docusate Sodium (Dorita-Colace) 2 tab PO Q12H PRN PRN Reason: CONSTIPATION Simethicone (Mylicon Chew) 80 mg PO QID PRN PRN Reason: FLATULENCE Last Admin: 12/17/17 22:36 Dose: 80 mg Sodium Chloride (Ns Flush) 2 ml IV.FLUSH BID DEBRA Sodium Chloride (Ns Flush) 2 ml IV.FLUSH UNSCH PRN PRN Reason: FLUSH AFTER USING IV ACCESS Zolpidem Tartrate (Ambien) 5 mg PO HS PRN PRN Reason: INSOMNIA Last Admin: 12/17/17 22:36 Dose: 5 mg Assessment and Plan - Plan POD#2 from repeat c/s with complication of bladder injury - possible ileus: clear liquid diet, will d/c BOARDER MACHINE in PM - f/u bladder scan, f/u recs of urologist - clear liquid diet - Dulcolax supp x 2 - leg bag for hair Discharge Planning: will likely d/c on POD#3, with f/u next week in office with urologist , and f/u at 1week ppm with PARCEL POST TRUCK DRIVER
[2017-12-18] MEDS: Belladonna Alkaloid/Opium 60 MG Supp RECTAL PRN (09:30)
[2017-12-18] MEDS: Simethicone 80 MG Chew Tablet PO PRN ×2 (09:30→22:20)
--- NOTE | 2017-12-18 09:54 | US ---
EXAM DATE: 12/18/2017 9:41 AM EDT AGE/SEX: 32 years / Female INDICATIONS: Hematuria. CLINICAL DATA: This is the patient's initial encounter. Patient reports that signs and symptoms have been present for 2 days and indicates a pain score of 8/10. MEDICAL/SURGICAL HISTORY: Asthma. section. COMPARISON: No prior exams available for comparison. MEASUREMENTS: Right Kidney:__11.6 x 4.6 x 5.0 cm Left Kidney:__9.9 x 5.1 x 4.9 cm FINDINGS: Right Kidney: Normal echotexture and cortical thickness. No mass or hydronephrosis. Left Kidney: Normal echotexture and cortical thickness. No mass or hydronephrosis. Bladder: Decompressed. Not well evaluated. Other: Linear fluid is seen within the subcutaneous tissues anterior to the urinary bladder consiste nt with the history of recent section. No abscess observed.. CONCLUSION: 1. The urinary bladder is decompressed and not well evaluated. Linear fluid anterior to the urinary bladder likely relating to postoperative fluid without a discrete abscess. Electronically signed by: Craig Dowd MD 12/18/2017 9:53 AM EDT
--- NOTE | 2017-12-18 12:54 | P.PNOB ---
Subjective Post op day: 2 Objective Vital Signs/I&O: Vital Signs 12/17/17 20:10 12/18/17 01:00 12/18/17 05:00 Temperature 98.6 F 98.4 F 98.0 F Pulse Rate 83 68 73 Respiratory Rate 16 16 16 Blood Pressure 133/78 117/69 121/62 12/18/17 08:00 12/18/17 12:00 Temperature 97.9 F 97.4 F L Pulse Rate 83 79 Respiratory Rate 18 16 Blood Pressure 136/82 116/74 Intake & Output 12/17/17 12/18/17 12/18/17 18:59 06:59 18:59 Intake Total 1000 / 1000 Output Total 1894 / 1895 740 / 740 60 / 60 Balance -895 / -895 -740 / -740 -60 / -60 Intake: IV 1000 / 1000 LR 1000 mL Inj 1,000 ML @ 100 1000 / 1000 mls/hr IV.CONT .Q10H [facility] Rx#: [id number] Output: Urine Amount (Catheter) 1894 740 / 740 60 / 60 Indwelling Urethral Catheter 1894 / 189 740 / 740 60 / 60 Result Diagrams: 12/17/17 05:00 12/17/17 10:30 Objective Remarks: GENERAL: Well-nourished, well-developed patient. CARDIOVASCULAR: Regular rate and rhythm without murmurs, gallops, or rubs. RESPIRATORY: Breath sounds equal bilaterally. No accessory muscle use. ABDOMEN/GI: Abdomen soft, non-tender, bowel sounds present. Incision: Clean, dry and intact., steri strips Fundus: Firm, non-tender at umbilicus. GENITOURINARY: Light to moderate bleeding., hair to BSD pink tinged Medications and IVs: Active Medications Belladonna Alkaloids/Opium (B & O Supp) 60 mg RECTAL Q6H PRN PRN Reason: BLADDER SPASM Last Admin: 12/18/17 09:30 Dose: 60 mg Bisacodyl (Dulcolax Supp) 10 mg RECTAL DAILY [facility] Citric Acid/Sodium Citrate (Sodium Citrate/Citric Acid Liq) 30 ml PO BANNER PAINTER [facility] Stop: 12/20/17 10:29 Diphenhydramine HCl (Benadryl Inj) 25 mg IV.PUSH Q6H PRN PRN Reason: for itching Diphenhydramine HCl (Benadryl Inj) 25 mg IV.PUSH Q6H PRN PRN Reason: ITCHING Cefazolin Sodium 2,000 mg/ (Sodium Chloride) 100 mls @ 200 mls/hr IV.SIG BANNER PAINTER [facility] Hydromorphone/Sodium Chloride (Dilaudid Electric Meter Inspector Inj) 6 mg in 30 mls @ 0 mls/hr DIRECTOR FUNERAL UNSCH PRN PRN Reason: per DIRECTOR FUNERAL parameters Last Admin: 12/18/17 09:24 Dose: 0 mls/hr Ibuprofen (Motrin) 600 mg PO Q6H PRN PRN Reason: cramping Last Admin: 12/17/17 11:07 Dose: 600 mg Naloxone HCl (Narcan Inj) 0.4 mg IV.PUSH PRN PRN PRN Reason: SEE LABEL COMMENTS Ondansetron HCl (Zofran Inj) 4 mg IV.PUSH Q6H PRN PRN Reason: NAUSEA OR VOMITING Oxycodone/Acetaminophen (Percocet 5/325 Mg) 1 tab PO Q4H PRN PRN Reason: PAIN SCALE 3 TO 5 Oxycodone/Acetaminophen (Percocet 5/325 Mg) 2 tab PO Q4H PRN PRN Reason: PAIN SCALE 6 TO 10 Last Admin: 12/17/17 16:04 Dose: 2 tab Vit/Calcium/Iron/Folic Ac (Stuartnatal Plus 3) 1 tab PO DAILY DEBRA Senna/Docusate Sodium (Dorita-Colace) 2 tab PO Q12H PRN PRN Reason: CONSTIPATION Simethicone (Mylicon Chew) 80 mg PO QID PRN PRN Reason: FLATULENCE Last Admin: 12/18/17 09:30 Dose: 80 mg Sodium Chloride (Ns Flush) 2 ml IV.FLUSH BID DEBRA Sodium Chloride (Ns Flush) 2 ml IV.FLUSH UNSCH PRN PRN Reason: FLUSH AFTER USING IV ACCESS Zolpidem Tartrate (Ambien) 5 mg PO HS PRN PRN Reason: INSOMNIA Last Admin: 12/17/17 22:36 Dose: 5 mg Assessment and Plan - Diagnosis (1) Previous section Code(s): Z98.891 - History of uterine scar from previous surgery Status: Resolved (2) delivery delivered Code(s): O82 - Encounter for delivery without indication Status: Acute Plan: routine post op care (3) Bladder injury Code(s): S37.20XA - Unspecified injury of bladder, initial encounter Status: Acute Plan: home with hair, f/u urology - Plan pt doing well pt had some pain issues last night but under better control today, we will transition form DIRECTOR FUNERAL to oral medications ambulates in the room without difficulty hair not draining well, flushed with sterile saline and it improved drainage slightly. we will do bladder scan or U/S routine care Discharge Planning: consider dc home tomorrow
[2017-12-18] MEDS ORDERED: Bisacodyl 10 MG Supp RECTAL SCH (13:00)
[2017-12-18] MEDS ORDERED: Morphine Inj 4 MG/ML Vial IV.PUSH PRN (16:59)
[2017-12-18] MEDS ORDERED: HYDROmorphone PF Inj 2 MG/ML Vial IV.PUSH PRN (16:59)
[2017-12-18] MEDS ORDERED: Naloxone Inj 0.4 MG/ML Vial IV.PUSH PRN (16:59)
[2017-12-18] MEDS: Ibuprofen 400 MG Tablet PO PRN ×2 (17:21→23:36)
[2017-12-18] MEDS: oxyCODONE/Acetaminophen 10/325 Tablet PO PRN ×2 (17:22→23:37)
[2017-12-18] MEDS ORDERED: Bisacodyl 10 MG Supp RECTAL ONE (20:00)
[2017-12-19] MEDS: Belladonna Alkaloid/Opium 60 MG Supp RECTAL PRN (00:09)
[2017-12-19] MEDS ORDERED: Morphine Inj 4 MG/ML Vial IM ONE (01:15)
[2017-12-19] MEDS: oxyCODONE/Acetaminophen 10/325 Tablet PO PRN ×5 (04:37→22:41)
--- NOTE | 2017-12-19 08:20 | P.PNOB ---
Subjective Post op day: 3 Interval history: Doing well this am but needed some morphine last night. Had a good BM. The hair is bothersome. Needs more pain medicine. Objective Vital Signs/I&O: Vital Signs 12/18/17 12:00 12/18/17 16:00 12/18/17 20:00 Temperature 97.4 F L 97.9 F 98.0 F Pulse Rate 79 77 90 Respiratory Rate 16 18 Blood Pressure 116/74 115/67 93/57 L Intake & Output 12/18/17 12/19/17 12/19/17 18:59 06:59 18:59 Output Total 1410 / 1410 100 / 100 Balance -1410 / -1410 -100 / -100 Output: Urine Amount (Catheter) 1410 / 1410 100 / 100 Indwelling Urethral Catheter 1410 / 1410 100 / 100 Result Diagrams: 12/17/17 05:00 12/17/17 10:30 Objective Remarks: GENERAL: Well-nourished, well-developed patient. CARDIOVASCULAR: Regular rate and rhythm without murmurs, gallops, or rubs. RESPIRATORY: Breath sounds equal bilaterally. No accessory muscle use. ABDOMEN/GI: Abdomen soft, non-tender, bowel sounds present. Incision: Clean, dry and intact. Fundus: Firm, non-tender at umbilicus. GENITOURINARY: Light to moderate bleeding. EXTREMITIES: No cyanosis or edema, non-tender, without signs of DVT. Medications and IVs: Active Medications Belladonna Alkaloids/Opium (B & O Supp) 60 mg RECTAL Q6H PRN PRN Reason: BLADDER SPASM Last Admin: 12/19/17 00:09 Dose: 60 mg Bisacodyl (Dulcolax Supp) 10 mg RECTAL DAILY [facility] Last Admin: 12/18/17 14:29 Dose: 10 mg Citric Acid/Sodium Citrate (Sodium Citrate/Citric Acid Liq) 30 ml PO CLIENT SERVICE ADMINISTRATOR [facility] Stop: 12/20/17 10:29 Diphenhydramine HCl (Benadryl Inj) 25 mg IV.PUSH Q6H PRN PRN Reason: for itching Hydromorphone HCl (Dilaudid Pf Inj) 1 mg IV.PUSH Q3H PRN PRN Reason: BREAKTHROUGH PAIN Cefazolin Sodium 2,000 mg/ (Sodium Chloride) 100 mls @ 200 mls/hr IV.SIG CLIENT SERVICE ADMINISTRATOR [facility] Ibuprofen (Motrin) 400 mg PO Q6HR PRN PRN Reason: PAIN SCALE 1 TO 2 Last Admin: 12/18/17 23:36 Dose: 400 mg Morphine Sulfate (Morphine Inj) 2 mg IV.PUSH Q1H PRN PRN Reason: Pain Scale 7-10 (Intractable) Naloxone HCl (Narcan Inj) 0.4 mg IV.PUSH PRN PRN PRN Reason: SEE LABEL COMMENTS Ondansetron HCl (Zofran Inj) 4 mg IV.PUSH Q6H PRN PRN Reason: NAUSEA OR VOMITING Oxycodone/Acetaminophen (Percocet 5/325 Mg) 1 tab PO Q6H PRN PRN Reason: PAIN SCALE 3 TO 5 Oxycodone/Acetaminophen (Percocet 10/325 Mg) 1 tab PO Q4H PRN PRN Reason: PAIN SCALE 6 TO 10 Last Admin: 12/19/17 04:37 Dose: 1 tab Vit/Calcium/Iron/Folic Ac (Stuartnatal Plus 3) 1 tab PO DAILY [facility] Senna/Docusate Sodium (Dorita-Colace) 2 tab PO Q12H PRN PRN Reason: CONSTIPATION Simethicone (Mylicon Chew) 80 mg PO QID PRN PRN Reason: FLATULENCE Last Admin: 12/18/17 22:20 Dose: 80 mg Sodium Chloride (Ns Flush) 2 ml IV.FLUSH BID DEBRA Sodium Chloride (Ns Flush) 2 ml IV.FLUSH UNSCH PRN PRN Reason: FLUSH AFTER USING IV ACCESS Zolpidem Tartrate (Ambien) 5 mg PO HS PRN PRN Reason: INSOMNIA Last Admin: 12/17/17 22:36 Dose: 5 mg Assessment and Plan - Diagnosis (1) Previous section Code(s): Z98.891 - History of uterine scar from previous surgery Status: Resolved (2) delivery delivered Code(s): O82 - Encounter for delivery without indication Status: Acute Plan: routine post op care (3) Bladder injury Code(s): S37.20XA - Unspecified injury of bladder, initial encounter Status: Acute Plan: home with hair, f/u urology - Plan POD#3 from repeat c/s with complication of bladder injury Not ready for discharge home yet as she needed extra pain meds last night. Repeat CBC. Discharge home tomorrow. Discharge Planning: will likely d/c on POD#3, with f/u next week in office with urologist , and f/u at 1week ppm with [employer] CR[employer]IC
[2017-12-19] MEDS: Senna/Docusate Sodium 8.6/50 MG Tablet PO PRN (08:55)
[2017-12-19] MEDS: Prenatal Vit/Ca/Iron/Folic Acid Tablet PO SCH ×2 (08:56→08:57)
[2017-12-19] MEDS: Ibuprofen 400 MG Tablet PO PRN ×3 (08:58→22:42)
--- NOTE | 2017-12-19 12:58 | P.DS ---
Date of admission: 12/16/17 09:25 Primary care physician: No Primary Care Physician Anticipated date of discharge: 12/20/17 Brief History from admission: at 39 weeks 2 days, history of previous 1, presents for scheduled repeat . Patient denies any regular contractions, leakage of fluid, vaginal bleeding. She has been feeling the baby move. No chest pain/ shortness of breath/dizziness. OB history current ; uncomplicated, none -Most recent ultrasound at 36 weeks; vertex presentation, 5 lbs. 10 oz. -GBS negative OB history: - for breech presentation, laboring at 3 cm: 2013 DS: Diagnosis - Discharge Diagnosis (1) delivery delivered Status: Acute (2) Bladder injury Status: Acute DS: Medications - Discharge Medications Prescriptions: oxycodone-acetaminophen 1 - 2 tab PO Q4HR PRN #30 tab PRN Reason: Pain, Moderate cephalexin 500 mg PO DAILY #14 cap ibuprofen 400 mg PO Q4-6H PRN #30 tab PRN Reason: Pain Scale 1 To 2 oxycodone-acetaminophen 1 tab PO Q4H PRN #30 tab PRN Reason: Pain Scale 6 To 10 DS: Summary Hospital Course: term previous c section repeat c section with bladder injury and repair hair catheter upon dc routine post op care - Time Spent with Patient Total time spent providing and/or coordinating discharge services: Less than 30 minutes Exam Vital signs: Vital Signs 12/18/17 16:00 12/18/17 20:00 12/19/17 08:30 Temperature 97.9 F 98.0 F 97.6 F Pulse Rate 77 90 81 Respiratory Rate 18 18 18 Blood Pressure 115/67 93/57 L 103/69 Intake & Output 12/18/17 12/19/17 12/19/17 18:59 06:59 18:59 Output Total 1410 / 1410 100 / 100 Balance -1410 / -1410 -100 / -100 Output: Urine Amount (Catheter) 1410 / 1410 100 / 100 Indwelling Urethral Catheter 1410 / 1410 100 / 100 Results Procedures completed during hospitalization: repeat c section bladder repair - Impressions ITS Impressions Abdomen/Bladder Ultrasound 12/18/17 08:17 CONCLUSION: 1. The urinary bladder is decompressed and not well evaluated. Linear fluid anterior to the urinary bladder likely relating to postoperative fluid without a discrete abscess. Discharge Plan - Discharge Disposition Patient Disposition: 01 Discharge Home - Discharge Condition Condition: Fair - Discharge Order Discharge Orders: Discharge Order (Routine); Ordered 12/19/17 Ordered By: Enedina Hannah RESAWYER Clear for Discharge (Routine); Ordered 12/19/17 Ordered By: Enedina Hannah - Discharge Details Anticipated Discharge Date: 12/20/17 Discharge Comment: pt to keep hair catheter x 2 weeks - Physicians Team Primary Care Provider: Primary Care Zaida Davila Attending Provider: Kike Mendosa - Rxs /Orders / Referrals /Forms Prescriptions: New cephalexin 500 mg Capsule 500 mg PO DAILY Qty: 14 RF: 0 ibuprofen 400 mg Tablet 400 mg PO Q4-6H PRN (Reason: Pain Scale 1 To 2) Qty: 30 RF: 1 oxycodone-acetaminophen 10-325 mg Tablet 1 tab PO Q4H PRN (Reason: Pain Scale 6 To 10) Qty: 30 RF: 0 oxycodone-acetaminophen 5-325 mg Tablet 1 - 2 tab PO Q4HR PRN (Reason: Pain, Moderate) Qty: 30 RF: 0 Continue [id number] [ Multi] 27-800 mg-mcg Tablet 1 tab PO DAILY Discontinued calcium carbonate [Calcium 500] 500 mg calcium (1,250 mg) Tablet 500 mg PO BID Referrals: Primary Care Zaida Davila [Primary Care Provider] - See Instructions Kike Mendosa MD [Physician] - See Instructions (schedule to be seen next week) Simone Srinivasan DO [UROLOGY] - See Instructions (schedule and appointment next week) - Discharge Instructions Patient Printed Instructions: Hair Catheter Placement and Care (DC), Urinary Leg Bag (GEN), Preeclampsia and Eclampsia After Delivery (GEN), (DC) - Post Discharge Care Plan Care Plan Goals: Your Health Problems: Goals to Promote Your Health: * To prevent worsening of your condition * To maintain your health at the optimal level Directions to Meet Your Goals: * Take your medications as prescribed * Follow your dietary instruction * Follow activity as directed * Keep your appointments as scheduled * Take your immunizations and boosters as scheduled * If your symptoms worsen call your PCP * If no PCP go to Urgent Care or Emergency Room Smoking is dangerous to your health. Avoid second hand smoke. You may reach the 24-hour crisis hotline for domestic abuse at .
[2017-12-19] MEDS: Simethicone 80 MG Chew Tablet PO PRN ×2 (13:52→22:46)
[2017-12-20] MEDS: oxyCODONE/Acetaminophen 10/325 Tablet PO PRN ×3 (02:31→13:11)
[2017-12-20] MEDS: Senna/Docusate Sodium 8.6/50 MG Tablet PO PRN (07:23)
[2017-12-20] MEDS: Ibuprofen 400 MG Tablet PO PRN (07:23)
[2017-12-20] MEDS: Prenatal Vit/Ca/Iron/Folic Acid Tablet PO SCH (09:41)
--- NOTE | 2017-12-20 10:06 | P.PNOB ---
Subjective Post op day: 3 Interval history: doing well this am, ready for discharge, has leg bag in place Objective Vital Signs/I&O: Vital Signs 12/19/17 19:48 Temperature 98.1 F Pulse Rate 81 Respiratory Rate 16 Blood Pressure 100/59 L Result Diagrams: 12/17/17 05:00 12/17/17 10:30 Objective Remarks: GENERAL: Well-nourished, well-developed patient. CARDIOVASCULAR: Regular rate and rhythm without murmurs, gallops, or rubs. RESPIRATORY: Breath sounds equal bilaterally. No accessory muscle use. ABDOMEN/GI: Abdomen soft, non-tender, bowel sounds present. Incision: Clean, dry and intact. Fundus: Firm, non-tender at umbilicus. GENITOURINARY: Light to moderate bleeding. EXTREMITIES: No cyanosis or edema, non-tender, without signs of DVT. Medications and IVs: Active Medications Cephalexin Monohydrate (Keflex) 500 mg PO DAILY [facility] Last Admin: 12/20/17 09:41 Dose: 500 mg Citric Acid/Sodium Citrate (Sodium Citrate/Citric Acid Liq) 30 ml PO [employer] [facility] Stop: 12/20/17 10:29 Diphenhydramine HCl (Benadryl Inj) 25 mg IV.PUSH Q6H PRN PRN Reason: for itching Hydromorphone HCl (Dilaudid Pf Inj) 1 mg IV.PUSH Q3H PRN PRN Reason: BREAKTHROUGH PAIN Cefazolin Sodium 2,000 mg/ (Sodium Chloride) 100 mls @ 200 mls/hr IV.SIG [employer] [facility] Ibuprofen (Motrin) 400 mg PO Q6HR PRN PRN Reason: PAIN SCALE 1 TO 2 Last Admin: 12/20/17 07:23 Dose: 400 mg Morphine Sulfate (Morphine Inj) 2 mg IV.PUSH Q1H PRN PRN Reason: Pain Scale 7-10 (Intractable) Naloxone HCl (Narcan Inj) 0.4 mg IV.PUSH PRN PRN PRN Reason: SEE LABEL COMMENTS Ondansetron HCl (Zofran Inj) 4 mg IV.PUSH Q6H PRN PRN Reason: NAUSEA OR VOMITING Oxycodone/Acetaminophen (Percocet 5/325 Mg) 1 tab PO Q6H PRN PRN Reason: PAIN SCALE 3 TO 5 Oxycodone/Acetaminophen (Percocet 10/325 Mg) 1 tab PO Q4H PRN PRN Reason: PAIN SCALE 6 TO 10 Last Admin: 12/20/17 07:24 Dose: 1 tab Vit/Calcium/Iron/Folic Ac (Stuartnatal Plus 3) 1 tab PO DAILY [facility] Last Admin: 12/20/17 09:41 Dose: 1 tab Senna/Docusate Sodium (Dorita-Colace) 2 tab PO Q12H PRN PRN Reason: CONSTIPATION Last Admin: 12/20/17 07:23 Dose: 2 tab Simethicone (Mylicon Chew) 80 mg PO QID PRN PRN Reason: FLATULENCE Last Admin: 12/19/17 22:46 Dose: 80 mg Zolpidem Tartrate (Ambien) 5 mg PO HS PRN PRN Reason: INSOMNIA Last Admin: 12/17/17 22:36 Dose: 5 mg Assessment and Plan - Diagnosis (1) delivery delivered Code(s): O82 - Encounter for delivery without indication Status: Acute (2) Bladder injury Code(s): S37.20XA - Unspecified injury of bladder, initial encounter Status: Acute (3) Previous section Code(s): Z98.891 - History of uterine scar from previous surgery Status: Resolved - Plan POD#3 from repeat c/s with complication of bladder injury d/c home today with percocet, keflex, motrin, will use stool softener, simethicone at home as needed call Dr Mendosa's office friday am for f/u appt due to leg bag no lifting, nothing per vagina Discharge Planning: will likely d/c on POD#3, with f/u next week in office with urologist , and f/u at 1week ppm with [employer] - Attending Attestation pt seen by me
[2018-12-16] MEDS ORDERED: Phenylephrine/NS 1000 MCG/10ML Syringe IV.PUSH ONE (12:00)
[2018-12-16] MEDS ORDERED: Succinylcholine Inj 100 MG/5 ML Syringe IV.PUSH ONE (12:00)
== END 2017-12-20 14:02 | disposition home or self-care (01) ==
LOC: H2E 09:25 → H1EA 16:51
PROVIDERS: ADMIT Obstetrics & Gynecology; ATTEND Obstetrics & Gynecology